=== PATIENT | female | born 1970 | race Caucasian/White ===

== ENCOUNTER 2019-02-21 11:11 | Emergency (ER) | payer SELFPAY ==
[~2019-02-21] VITALS: Ht 170.2 cm; Wt 60.9 kg
[2019-02-21 11:16] VITALS: BP 149/87
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
--- NOTE | 2019-02-21 11:58 | NUR ---
pt back from us.
[2019-02-21] MEDS ORDERED: IBUPROFEN 200 MG TABLET PO ONE (12:00)
[2019-02-21] MEDS ORDERED: IBUPROFEN 800 MG TABLET ONE (12:01)
== END 2019-02-21 13:39 | disposition home or self-care (01) ==
LOC: ED 11:26
DX: S43.422A Sprain of left rotator cuff capsule, initial encounter (principal); S09.22XA Traumatic rupture of left ear drum, initial encounter; Z90.710 Acquired absence of both cervix and uterus; Y04.8XXA Assault by other bodily force, initial encounter; Y93.89 Activity, other specified; Y99.8 Other external cause status; Y92.89 Other specified places as the place of occurrence of the external cause
CPT/HCPCS: 29105; 99283